=== PATIENT | male | born 1990 | race Two or more races ===

== ENCOUNTER 2024-03-20 18:39 | Emergency (ER) | payer OTHER ==
[~2024-03-20] VITALS: Ht 172.7 cm; Wt 103.4 kg
[2024-03-20 19:04] VITALS: BP 128/75; PULSE 69; RESP 20; TEMP 97.5; O2SAT 98
[2024-03-20] MEDS: KETOROLAC TROMETH 60MG/2ML VIAL IM ONE (19:45)
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
[2024-03-20] MEDS ORDERED: IBUP-1456 PO (20:22)
[2024-03-20] MEDS ORDERED: TIZA-142 PO (20:22)
== END 2024-03-20 20:40 | disposition home or self-care (01) ==
LOC: ER 18:39
DX: S13.4XXA Sprain of ligaments of cervical spine, initial encounter (principal); S33.5XXA Sprain of ligaments of lumbar spine, initial encounter; S29.012A Strain of muscle and tendon of back wall of thorax, initial encounter; S60.222A Contusion of left hand, initial encounter; S60.012A Contusion of left thumb without damage to nail, initial encounter; V89.2XXA Person injured in unspecified motor-vehicle accident, traffic, initial encounter; Y93.89 Activity, other specified; Y92.410 Unspecified street and highway as the place of occurrence of the external cause; Y99.8 Other external cause status
CPT/HCPCS: 72040; 72070; 72100; 73130; 96372; 99284; J1885